=== PATIENT | male | born 1995 | race Two or more races ===

== ENCOUNTER 2019-04-03 04:33 | Emergency (ER) | payer OTHER ==
[~2019-04-03] VITALS: Ht 182.9 cm; Wt 68.0 kg
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
[2019-04-03] MEDS ORDERED: TDAP [DIPH/PERTUSSIS/TET] 0.5 ML VIAL IM ONE ×2 (05:00→05:08)
--- NOTE | 2019-04-03 05:13 | NUR ---
(pt. name) ambulatory with a steady gait
--- NOTE | 2019-04-03 05:13 | NUR ---
PT IS OK TO BOOK. RELEASED TO THE CUSTODY OF [facility]. ACI GIVEN TO [employer] OFFICER.
[2019-04-03 05:14] VITALS: BP 138/72
== END 2019-04-03 05:14 ==
LOC: ER 04:35
DX: S61.411A Laceration without foreign body of right hand, initial encounter (principal); J45.909 Unspecified asthma, uncomplicated; W26.8XXA Contact with other sharp object(s), not elsewhere classified, initial encounter; Y93.89 Activity, other specified; Y92.89 Other specified places as the place of occurrence of the external cause; Y99.8 Other external cause status
CPT/HCPCS: 90715